=== PATIENT | female | born 1970 | race Caucasian/White ===

== ENCOUNTER → 2025-03-19 10:51 | Outpatient (REF) | payer OTHER, SELFPAY | LOC: WDC 10:51 | PROVIDERS: ATTENDING PHYSICIAN Family Medicine | DX: Z12.31 Encounter for screening mammogram for malignant neoplasm of breast (principal) | CPT/HCPCS: 77063; 77067 ==

== ENCOUNTER → 2025-04-04 08:54 | Outpatient (REF) | payer OTHER, SELFPAY | LOC: WDC 08:54 | PROVIDERS: ATTENDING PHYSICIAN Family Medicine | DX: R92.8 Other abnormal and inconclusive findings on diagnostic imaging of breast (principal) | CPT/HCPCS: 76642; 77061; 77065 ==

== ENCOUNTER → 2025-04-07 07:28 | Outpatient (REF) | payer OTHER, SELFPAY ==
--- NOTE | 2025-04-08 11:10 | OID.BR.INTR ---
OID Breast Navigator - Initial
- -
Did not meet patient at time of biopsy. Will follow up per protocol.
== END ==
LOC: WDC 07:28
PROVIDERS: ATTENDING PHYSICIAN Family Medicine
DX: N63.21 Unspecified lump in the left breast, upper outer quadrant (principal)
CPT/HCPCS: 88305; 19083; 19084; 88341; 88342; 88360; A4648

== ENCOUNTER → 2025-04-17 09:34 | Outpatient (REF) | payer OTHER, SELFPAY | LOC: RAD 09:34 | PROVIDERS: ATTENDING PHYSICIAN Surgery; FAMILY PHYSICIAN Family Medicine | DX: C50.412 Malignant neoplasm of upper-outer quadrant of left female breast (principal) | CPT/HCPCS: 71260; 74177; 78306; A9503; Q9967 ==

== ENCOUNTER → 2025-04-25 08:08 | Outpatient (REF) | payer OTHER, SELFPAY | LOC: MRI 3T 08:08 | PROVIDERS: ATTENDING PHYSICIAN Surgery; FAMILY PHYSICIAN Family Medicine | DX: C50.412 Malignant neoplasm of upper-outer quadrant of left female breast (principal) | CPT/HCPCS: 77049; A9585 ==

== ENCOUNTER → 2025-05-01 10:46 | Outpatient (REF) | payer OTHER, SELFPAY ==
[2025-05-01 11:04] VITALS: BP 97/65; BP_SYST 53
[2025-05-01] MEDS: ANCEF 10 IV (11:56)
[2025-05-01 12:55] VITALS: BP 108/63; BP_SYST 42
[2025-05-01 13:15] VITALS: BP 119/80; BP_SYST 54
== END ==
LOC: RADI 10:46
PROVIDERS: ATTENDING PHYSICIAN Internal Medicine Hematology & Oncology; FAMILY PHYSICIAN Family Medicine
DX: C50.412 Malignant neoplasm of upper-outer quadrant of left female breast (principal)
CPT/HCPCS: 36561; 76937; 77001; 99152; 99153; C1788

== ENCOUNTER → 2025-05-02 14:05 | Outpatient (REF) | payer OTHER, SELFPAY | LOC: HWRCS 14:05 | PROVIDERS: ATTENDING PHYSICIAN Internal Medicine Hematology & Oncology; FAMILY PHYSICIAN Family Medicine | DX: C50.412 Malignant neoplasm of upper-outer quadrant of left female breast (principal) | CPT/HCPCS: 93306 ==

== ENCOUNTER 2025-05-19 02:48 | Observation (INO) | payer OTHER, SELFPAY ==
[2025-05-18 23:15] VITALS: BP 105/64
[2025-05-19] VITALS (8 sets, daily range): BP systolic 96–135; BP diastolic 46–82; BMI 24.1
[2025-05-19] MEDS: TYLENOL 1000 MG PO (00:25)
[2025-05-19] MEDS: NSS 1000 IV (00:25)
--- NOTE | 2025-05-19 00:33 | ED.GENMED ---
History of Present Illness
General
Chief Complaint: Dehydration Symptoms
Time Seen by Provider: 05/18/25 23:27
History of Present Illness
History of Present Illness:
54-year-old female with history of breast cancer presenting to the emergency department for generally feeling unwell. Patient had her first chemotherapy session on Monday, 6 days ago. 3 days ago, started to feel rundown, nauseous, headache, sore
throat. Denies known fever. She follows at [facility]. She does note some mild lower abdominal discomfort, however suspects that it secondary to not eating very much. Denies chest pain or difficulty breathing. Denies cough. Denies urinary
complaints. Denies additional acute medical complaints
Past History
Past History
ED Past Medical History: None
ED Past Surgical History: None
Social History
Personal:
Living: with family
Employment: Employed
Phy Exam
Physical Exam
Physical Exam:
General: Well-appearing, no clinical signs of dehydration, nontoxic and in no acute distress
HEENT: protecting airway
Neck: appears supple
CV: Normal heart rate, regular rhythm
Resp: No accessory muscle use, no increased work of breathing, lungs clear to auscultation bilaterally
Abd: Soft and non-distended, mild tenderness to the lower abdomen without rebound or guarding
Extremities: No deformities, no swelling, no erythema
Neuro: alert, no focal neurologic deficit
: deferred
Rectal: deferred
Psych: Normal affect
Skin: Intact
Course
Orders/Labs/Results
Orders:
Orders
05/18/25 23:25
Electrocardiogram (*1) Urgent
Reason for Study: Other
Other Reason for Exam: Possible Sepsis
Cardiac Monitoring- Treatment ONCE
Complete Blood Count/With Diff Urgent
Comprehensive Metabolic Panel Urgent
O2 Therapy [RESP] Urgent
Titrate/Wean O2 to maintain O2 sat greater than (%): 93
Special Instructions: TO MAINTAIN CONTINUOUS O2 SATS > OR = 93%
Pulse Ox/cont/shift [RESP] Urgent
Quantity: 1
Special Instructions: CONTINUOUS
05/18/25 23:26
EKG- Treatment ONCE
05/18/25 23:30
Lactic Acid Q4H
Comment: ON ICE, CANCEL 2ND ORDER IF FIRST LACTIC ACID LEVEL <2
Blood Culture Q20M
JONATHON Source: Blood/Venous
Specimen Description:
Comment: Urgent from separate sites. If patient screens positive for possible sepsis
05/18/25 23:50
Blood Culture Q20M
JONATHON Source: Blood/Venous
Specimen Description:
Comment: Urgent from separate sites. If patient screens positive for possible sepsis
05/18/25 23:51
COVID-19 Antigen Urgent
Source: Nasal Swab
05/18/25 23:52
Influenza A+B Rapid Molecular Urgent
JONATHON Source: Nasal Swab
Specimen Description:
05/18/25 23:53
0.9% Sodium Chloride 1000 ml [Nss] 1,000 ml IV BOLUS
Acetaminophen [Tylenol] 1,000 mg PO NOW STA
05/19/25 00:00
CR Chest - 2 Views Urgent
Reason For Exam: fever, congestion
05/19/25 00:04
Manual Differential Urgent
05/19/25 00:15
Heparin Pf [Heparin Lock Flush] 500 unit IV PER PROTOCOL
05/19/25 00:22
CT Abd/pelvis W Iv Cont Urgent
Comment:
Reason For Exam: fever, lower pain, hx breast CA, fever
05/19/25 00:41
Urinalysis Urgent
Date Specimen was Collected: 05/19/25
Time Specimen was Collected: 00:41
Urine Microscopic Urgent
Date Specimen was Collected: 05/19/25
Time Specimen was Collected: 00:41
05/19/25 01:52
Piperacillin/Tazo 4.5 Gram [Zosyn] 4.5 gram in 100 ml IV NOW
Abnormal Lab Results
05/19/25 05/19/25
00:04 00:41
WBC 2.8 L 10^3/uL
(4.8-10.8)
RBC 3.69 L 10^6/uL
(4.20-5.40)
Hgb 11.5 L g/dL
(12.0-16.0)
Hct 33.5 L %
(37.0-47.0)
MCH 31.2 H pg
(27.0-31.0)
RDW 11.4 L %
(11.5-14.5)
Plt Count 110 L 10^3/uL
(130-400)
MPV 12.0 H fL
(7.4-10.4)
Abs Neuts (Manual) 0.3 L* 10^3/uL
(1.4-6.5)
Segmented Neutrophils 6 L %
(42-75)
Band Neutrophils 6 H %
(0-3)
Lymphocytes (Manual) 55 H %
(20-51)
Monocytes (Manual) 29 H %
(2-9)
Glucose 145 H mg/dl
(70-99)
Urine Occult Blood 1+ A
(Negative)
Ur Leukocyte Esterase 1+ A
(Negative)
Urine WBC 11-15 A /HPF
(0-5)
Urine Bacteria Many A
(Negative)
05/19/25 00:04
05/19/25 00:04
Vital Signs
Initial and Last Documented VS:
Initial Vital Signs
Temp Pulse Resp BP Pulse Ox
100.4 F H 90 24 105/64 97
05/18/25 23:15 05/18/25 23:15 05/18/25 23:15 05/18/25 23:15 05/18/25 23:15
Last Documented Vital Signs
Temp Pulse Resp BP Pulse Ox
100.4 F H 89 20 135/82 98
05/18/25 23:15 05/19/25 00:46 05/19/25 00:46 05/19/25 00:46 05/19/25 00:46
MDM/Problems Addressed
MDM/Problems Addressed:
54-year-old female with history of breast cancer presenting for generally feeling well signs on arrival significant for low-grade temperature.
On exam patient is resting comfortably, no acute distress, nontoxic. Again vital signs concerning for low-grade temperature. Patient is on active chemotherapy, immunocompromise state. For this reason we will obtain laboratory analysis including
blood cultures, lactic acid. Unclear source of infection. Notes some general throat discomfort and headache, likely viral URI. Again, given high risk patient, will obtain a chest x-ray imaging, urinalysis. Patient also noted to have some mild
lower abdominal discomfort. This reason we will also obtain CT abdomen pelvis. Patient started on IV fluids given Tylenol for fever.
01:50 -labs show neutropenia with concern at this time for neutropenic fever. Urine without sign of infection. CT without acute process. Chest x-ray without acute cardiopulmonary disease. However, given immunocompromise state with neutropenic
fever, will broad-spectrum antibiotics and plan for admission
*Pulse Oximetry
SaO2: 97
Oxygen Mode of Delivery: Room air
*Critical Care Note
Total Time (30-74mins, 75-104mins- exclusive of procedures): Not Applicable
ED Attending Note
-
Portions of this chart may have been created with voice recognition software.� Occasional wrong word or��sound alike� substitutions may have occurred due to the inherent limitations of voice recognition software.
Discharge Plan
Departure
Prescriptions:
No Action
phenazopyridine 200 MG tablet
200 mg PO TID Qty: 7 0RF
sulfamethoxazole-trimethoprim 1 TABLET tablet
1 tab PO BID Qty: 14 0RF
Referrals:
UNKNOWN - PT DOES,NOT KNOW [Family Provider]
Interventions
Interventions:
*Risk Screen - Suicide Last Done: 05/18/25 23:15
*General Assessment Last Done: 05/19/25 00:29
*Neglect/Abuse Screening Last Done: 05/18/25 23:15
*ED- Fall Risk Assessment Last Done: 05/19/25 00:29
PZ-Obuoci-Gvxsnymscz Assessment Last Done: 05/19/25 00:28
ED- Cardiac Assessment Last Done: 05/19/25 00:28
ED- Neurological Assessment Last Done: 05/19/25 00:28
ED- Pulmonary Assessment Last Done: 05/19/25 00:28
ED-Skin Assessment Last Done: 05/19/25 00:28
Discharge Date and Time
Print Language: CROATIAN
[2025-05-19 00:35] LABS: Lactic Acid 1.8 mmol/L (0.7-2.0)
[2025-05-19 00:36] LABS: ALT (SGPT) 21 U/L (0-35); AST (SGOT) 23 U/L (14-36); Alkaline Phosphatase 81 U/L (38-126); Blood Urea Nitrogen 11 mg/dl (7-17); Calcium 8.9 mg/dl (8.4-10.2); Carbon Dioxide 25 mmol/L (22-30); Chloride 106 mmol/L (98-107); Glucose 145 mg/dl (70-99); Potassium 3.9 mmol/L (3.5-5.1); Sodium 136 mmol/L (135-145); Total Bilirubin 0.6 mg/dl (0.2-1.3); Total Protein 6.4 g/dl (6.3-8.2); eGFR > 60.00
[2025-05-19 00:40] LABS: COVID-19 Antigen Negative (Negative)
[2025-05-19 00:50] LABS: Urine Albumin Negative (Neg - Trace); Urine Bilirubin Negative (Negative); Urine Character Clear (Clear); Urine Color Yellow; Urine Glucose Negative (Negative); Urine Ketone Negative (Negative); Urine Leukocyte 1+ (Negative); Urine Nitrite Negative (Negative); Urine Occult Blood 1+ (Negative); Urine Specific Gravity 1.005 (<1.030); Urine Urobilinogen Negative (Neg - 1+)
[2025-05-19 00:52] LABS: Hematocrit 33.5 % (37.0-47.0); Hemoglobin 11.5 g/dL (12.0-16.0); Mean Corp Hgb Conc. 34.3 g/dL (33.0-37.0); Mean Corpuscular Hgb 31.2 pg (27.0-31.0); Mean Corpuscular Volume 90.8 fL (81.0-99.0); Platelet Count 110 10^3/uL (130-400); Red Blood Cell Count 3.69 10^6/uL (4.20-5.40); Red Cell Dist. Width 11.4 % (11.5-14.5); White Blood Cell Count 2.8 10^3/uL (4.8-10.8)
[2025-05-19 01:10] LABS: Urine Bacteria Many (Negative)
[2025-05-19 01:11] LABS: Urine Red Blood Cell 0-2 /HPF (0-2)
[2025-05-19 01:41] LABS: Band Neutrophils 6 % (0-3); Eosinophils 4 % (0-6); Lymphocytes 55 % (20-51); Monocytes 29 % (2-9); Segmented Neutrophils 6 % (42-75)
[2025-05-19 01:42] LABS: Absolute Neutrophils -Man Diff 0.3 10^3/uL (1.4-6.5); Normal RBC Morphology Yes; Platelets Checked Yes; Total Cells Counted 100
--- NOTE | 2025-05-19 02:07 | HPS.HSE ---
Family Physician
-
Family Physician: NOT KNOW UNKNOWN - PT DOES
Chief Complaint
-
fever
History of Present Illness
This is a 54-year-old female with past medical history of breast cancer was recently started on chemotherapy 6 days ago presenting to the emergency department with weakness/malaise.
Patient was diagnosed with breast cancer in March. She began neoadjuvant chemotherapy with TCHP on Monday. She reports being essentially asymptomatic prior to the chemo. By Monday she started having symptoms including 2-3 bouts of loose
stool/diarrhea, abdominal pain, loss of appetite, fatigue. She reports urine started to become darker colored and had an odor. Overall she denied vomiting but she has nausea. The abdominal pain is diffuse. She also reports perianal discomfort
secondary to the diarrhea. She denies any cough, she did not measure a temperature at home and she denied having chills. Denies feeling short of breath.
In the emergency Department she had a temp of 100.4, blood pressure 135/80 with a pulse of 84 she was satting 98% on room air. Chest x-ray was clear. She has a white count of 2.8 with a ANC less than 300, hemoglobin 9.5 platelet 110. Electrolytes
were normal. BUN/creatinine were normal. Glucose was normal. LFTs within normal limits.
CT of the abdomen pelvis shows no acute findings. UA is equivocal with positive leukocyte esterase WBCs and bacteria. Negative nitrites.
Medical History
Past Medical History
Past Medical History: Reports Cancer (Breast cancer)
Past Surgical History: Reports Other
Social History
Tobacco: Non-smoker
Alcohol: None
Drug: None
Personal:
Living: With Family
Family History
Family History: Not pertinent
Allergies / Home Medications
Allergies reflects when Allergies were last updated in [employer].
Home Medications with original date entered in [employer]
Allergy/Medication List:
Allergies
Allergy/AdvReac Type Severity Reaction Status Date / Time
erythromycin base Allergy Hives Verified 05/18/25 23:19
(Erythromycin Base)
Home Medications
phenazopyridine 200 mg tablet 200 mg PO TID #7 tabs 11/03/13
sulfamethoxazole 800 mg-trimethoprim 160 mg tablet 1 tab PO BID #14 tabs 11/03/13
Review of Systems
-
Constitutional: Reports Fatigue
EENT: Reports No Symptoms
Respiratory: Reports No Symptoms
Cardiac: Reports No Symptoms
Abdomen/GI: Reports No Symptoms
: Reports No Symptoms
Musculoskeletal: Reports No Symptoms
Skin: Reports No Symptoms
Neurological: Reports No Symptoms
Endocrine: Reports No Symptoms
Hematologic/Lymphatic: Reports No Symptoms
Psych: Reports No Symptoms
Physical Exam
Vital Signs
Vital Signs
Temp Pulse Resp BP Pulse Ox
100.4 F H 89 20 135/82 98
05/18/25 23:15 05/19/25 00:46 05/19/25 00:46 05/19/25 00:46 05/19/25 00:46
Physical Exam
General: Well Developed, Well Nourished and No Apparent Distress
HEENT: NormoCephalic, Moist mucous membranes and Atraumatic
Respiratory: Clear
Cardiac: S1/S2 and Regular Rhythm; No Murmur or Rub
GI: Soft, Non Tender, Non Distended and Normal Bowel Sounds; No Organomegaly
Rectal: Deferred by Provider
Musculoskeletal: No Clubbing, No Cyanosis and No Edema
Skin: No Rash
Neuro: Nonfocal/grossly intact
Laboratory Results
-
05/19/25 00:04
05/19/25 00:04
Laboratory Results
Lactic Acid Cancelled 05/19/25 03:30
Total Bilirubin 0.6 mg/dl (0.2-1.3) 05/19/25 00:04
AST 23 U/L (14-36) 05/19/25 00:04
ALT 21 U/L (0-35) 05/19/25 00:04
Alkaline Phosphatase 81 U/L (38-126) 05/19/25 00:04
Data Reviewed
-
Diagnostic Radiology: Image Personally Visualized and interpreted and Report Reviewed by me
CT Scan: Report Reviewed by me
Lab Data: Labs Reviewed by me
Old Records: Reviewed
Impression/Plan
-
IMPRESSION:
54-year-old female with recent diagnosis of breast cancer with recently status post 4 cycle of TCHP and presents to the emergency department after approximately 5 days of nausea, diarrhea, abdominal pain, malaise, loss of appetite and dehydration.
Found to be febrile to 100.4. Infectious workup is negative in the ED. Flu COVID-negative, x-ray negative, UA is equivocal. She had a CT of the abdomen pelvis which shows no acute intra-abdominal process.
PLAN:
Febrile neutropenia -patient with moderate risk given low duration of neutropenia, no significant comorbid conditions, hemodynamically stable and in no acute distress. Source possible urinal but unclear at this time.
-Admit to MedSurg observation
-Blood cultures have been sent
-Urine cultures sent
-Will start cefepime for appropriate coverage
-Monitor ANC
-Infectious disease consultation
Diarrhea -suspect secondary to chemo
-Stool cultures, norovirus and C. difficile
-Pain control
-Antiemetics
-Can start with Imodium
-IV fluids
DVT prophylaxis�Lovenox subcu
CODE STATUS�full code
[2025-05-19] MEDS: ZOSYN 100 IV (02:34)
[2025-05-19] MEDS: LR 1000 IV ×3 (04:43→21:25)
[2025-05-19] MEDS: ZOFRAN 4 MG IV (05:02)
[2025-05-19] MEDS: CALDOLOR 104 MG IV (05:03)
--- NOTE | 2025-05-19 05:50 | PTCARENOTE ---
Pt received from ED via stretcher. Ambulated to room independently w/o incident. AAOx3, at bedside. Admission and assessment completed. Oriented to surroundings and plan of care discussed. L breast biopsy site w/healed puncture and
ecchymosis, HIRAL. Excoriation to perineum from loose stools, pericare wipes and calazyme provided. Stool studies sent. Reports occasional burning w/urination. Pt tearful at times when reviewing plan of care/educating. Emotional support provided.
Reports abdominal pain and nausea. 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 One time dose received for IV ibuprofen (refer to MAR). R SubQ port w/brisk blood return, LR at 125 mL/hr. Neutropenic/enhance precautions maintained. Call
lisa w/in reach.
[2025-05-19 06:34] LABS: Hematocrit 31.6 % (37.0-47.0); Hemoglobin 10.9 g/dL (12.0-16.0); Mean Corp Hgb Conc. 34.5 g/dL (33.0-37.0); Mean Corpuscular Hgb 31.5 pg (27.0-31.0); Mean Corpuscular Volume 91.3 fL (81.0-99.0); Mean Platelet Volume 11.6 fL (7.4-10.4); Platelet Count 108 10^3/uL (130-400); Red Blood Cell Count 3.46 10^6/uL (4.20-5.40); Red Cell Dist. Width 11.5 % (11.5-14.5); White Blood Cell Count 3.8 10^3/uL (4.8-10.8)
[2025-05-19 06:54] LABS: Blood Urea Nitrogen 8 mg/dl (7-17); Calcium 8.6 mg/dl (8.4-10.2); Carbon Dioxide 21 mmol/L (22-30); Chloride 109 mmol/L (98-107); Estimated Creatinine Clearance 109 ml/min; Glucose 108 mg/dl (70-99); Magnesium 1.8 mg/dl (1.6-2.3); Potassium 3.7 mmol/L (3.5-5.1); Sodium 138 mmol/L (135-145); eGFR > 60.00
[2025-05-19] MEDS: STERILE WATER FOR INJECTION 10 ML IV ×3 (08:31→23:16)
[2025-05-19] MEDS: MAXIPIME 2000 MG IV ×3 (08:31→23:16)
--- NOTE | 2025-05-19 15:39 | CM ---
Addendum entered by Debra Murry 05/19/25 15:45:
OBS status
form explained & signed. In chart
Original Note:
Patient seen at bedside
IA completed
DX: Febrile neutropenia
PMH: breast cancer was recently started on chemotherapy 6 days ago presenting to the emergency department with weakness/malaise
Lives in a 2 story home with and their 4 children
PLOF: Independent, drives
Denies DME
Denies VN/Rehab
Denies Insecurities
PCP: [facility] Castro
[facility]
PLAN: home, no needs anticipated
--- NOTE | 2025-05-19 17:35 | CON.ID ---
Consultation
-
Date/Time Consultation Requested: April
Date/Time Consultation Performed: April
Requesting Provider: Dr Tang Davey
Performing Provider: Sola Parish MD
Reason for Consultation: Neutropenic fever
Chief Complaint / Past History
Chief Complaint
The patient was admitted by way of the emergency room due to recent malaise, nausea, headache and sore throat in the setting of recent chemotherapy for node positive left breast cancer
History of Present Illness
Recently diagnosed breast cancer node positive with neoadjuvant chemotherapy provided approximately 6 days ago. Prior to admission and breast cancer diagnosis patient was healthy and on no home medications. The patient was found to have left
breast mass and is currently being managed by oncology for her treatment. Her admitting temperature was 100.4 with WBC 2.8 with ANC less than 300. CT of the abdomen and urine analysis were benign patient was started on empiric
piperacillin/tazobactam. Patient had been on trimethoprim/sulfamethoxazole prior to admission with UA upon admission revealing leukocyte Estrace positive, WBCs, negative nitrites
Past History
Past Medical History: Cancer
Past Surgical History: None
Allergy History:
erythromycin base (Erythromycin Base) Allergy (Verified 05/18/25 23:19)
Hives
Medications Reviewed: Yes
Social History
Tobacco: Non-Smoker
Alcohol: None
Drug: None
Personal:
Living: With Family
Employment: Employed
Family History
Family History: Cancer (Maternal aunt with breast cancer), Diabetes (Mother) and Other (CVA Father)
Review of Systems
Review of Systems
General: Fever and Change in Appetite (Low-grade fever in the emergency room, patient with decreased appetite with nausea without vomiting)
Gasteroenterology: Nausea and Other (Loss of appetite)
Endocrine: Weakness, Fatigue and Other (General malaise)
All systems: All other systems were reviewed and were negative
Vital Signs
Temp Pulse Resp BP Pulse Ox
97.9 F 72 16 98/54 97
05/19/25 15:10 05/19/25 15:10 05/19/25 15:10 05/19/25 15:10 05/19/25 15:10
Physical Exam
Physical Exam
Constitutional: No Acute Distress, Well Developed, Comfortable and Other (Anxious)
Head: Normocephalic
Eyes: Pupils Equal, Pupils Round, No Conjunctival Hemorrhage and Sclera Anicteric
Pharynx: Benign
Oral: No Thrush, No Ulcers and Other (Complaints of sore throat without dysphagia and without evidence of erythema, ulceration, plaque)
Lymph Nodes: Other (Recent left axillary discomfort with findings on imaging of malignant nodes)
Cardiovascular: Regular Rate
Pulmonary: Clear and Non Labored
Gastrointestinal: Soft, Tender, Decreased Bowel Sounds, No Rebound and No Guarding
Genito-Urinary: Other (No flank tenderness, no suprapubic discomfort)
Extremities: Pulses and Other (No edema, no cyanosis, no clubbing good ROM)
Skin: Warm, Dry and Other (Clear)
Wound: None
Neurological: Awake, Alert, Oriented, AO x 3 and No Motor Deficits
Psychological: Calm and Other (A bit anxious)
Lab / Diagnostic Study Results
05/19/25 06:11
05/19/25 06:10
Total Counted 100 05/19/25 00:04
Abs Neuts (Manual) 0.3 10^3/uL (1.4-6.5) L* 05/19/25 00:04
Segmented Neutrophils 6 % (42-75) L 05/19/25 00:04
Band Neutrophils 6 % (0-3) H 05/19/25 00:04
Lymphocytes (Manual) 55 % (20-51) H 05/19/25 00:04
Eosinophils (Manual) 4 % (0-6) 05/19/25 00:04
Lactic Acid Cancelled 05/19/25 03:30
Urine WBC 11-15 /HPF (0-5) A 05/19/25 00:41
Ur Squamous Epith Cells 3-5 /LPF (Few) 05/19/25 00:41
Microbiology Results
Micro:
05/19/25 05:16 Salmonella/Shigella Culture - Pending
Feces/Stool Campylobacter Culture - Pending
Shiga Toxin Test - Pending
Stool Leukocytes - Final
05/19/25 05:16 C. difficile GDH Antigen & Toxins - Final
Feces/Stool Negative for toxigenic C.difficile
05/19/25 00:05 Blood Culture - Pending
Blood/Venous
05/19/25 00:04 Blood Culture - Pending
Blood/Venous
05/19/25 00:04 Influenza Types A & B ([facility]) - Final
Nasal Swab Negative for Influenza A & B, NAAT
Negative results must be combined with clinical observations
and patient history.
Nucleic Acid Amplification test (NAAT)performed on the
[employer] NOW platform.
Assessment / Plan
. 1. Oncology patient status post chemotherapy with expected neutropenia and low-grade fever with concern for infectious etiology
2. Equivocal urine analysis nitrite negative but with WBC and leukocyte esterase positive without symptoms and with trimethoprim/sulfamethoxazole antibiotic provided prior to admission
3. 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
Stool samples sent and pending
4. Empiric antibiotic initiated in the ED with piperacillin/tazobactam changed today to cefepime with culture results pending
5. Patient with likely continued decrease in WBC/platelets with patient currently afebrile will monitor on current antibiotic pending culture results
CT abdomen and pelvis was reviewed by me with no acute findings in GI or to suggest presence of acute infection at this time
Patient will likely have continued decrease thank you for calling infectious disease consultation. The ID team will continue to follow with you
Care Review
Plan reviewed with: Other (The patient was discussed in detail with at bedside)
Total Time Spent with Patient (in minutes): 55
[2025-05-20] MEDS: LR IV (04:39)
[2025-05-20 07:00] VITALS: BP 108/64
[2025-05-20] MEDS: MAXIPIME 2000 MG IV (08:05)
[2025-05-20] MEDS: STERILE WATER FOR INJECTION 10 ML IV (08:06)
[2025-05-20 11:15] LABS: Hematocrit 34.6 % (37.0-47.0); Hemoglobin 11.7 g/dL (12.0-16.0); Mean Corp Hgb Conc. 33.8 g/dL (33.0-37.0); Mean Corpuscular Hgb 30.9 pg (27.0-31.0); Mean Corpuscular Volume 91.3 fL (81.0-99.0); Mean Platelet Volume 11.2 fL (7.4-10.4); Platelet Count 143 10^3/uL (130-400); Red Blood Cell Count 3.79 10^6/uL (4.20-5.40); Red Cell Dist. Width 11.6 % (11.5-14.5); White Blood Cell Count 18.4 10^3/uL (4.8-10.8)
--- NOTE | 2025-05-20 11:25 | W.PN.HOSP.TC ---
Addendum entered and electronically signed by Tang Davey MD 05/20/25 13:57:
Patient tells me that she was not using any antibiotics including Bactrim or Pyridium. She was only using nausea medicine before coming in.
She continues to remain fine and tolerating diet without nausea or vomiting. No diarrhea. No fever or chills.
Repeat CBC with differential shows resolution of neutropenia.
So far investigations did not relieve any foci of infection.
Will hold further antibiotics discharge patient home. Patient advised to follow-up with her oncologist as planned. Advised to watch out for any recurrence of fever and if so to report to her oncologist.
Original Note:
Today's Communication/Plan
-
Following ANC count today
DC planning
Assessment / Plan
Assessment / Plan
IMPRESSION:
54-year-old female with recent diagnosis of breast cancer with recently status post 4 cycle of TCHP and presents to the emergency department after approximately 5 days of nausea, diarrhea, abdominal pain, malaise, loss of appetite and dehydration.
Found to be febrile to 100.4. Infectious workup is negative in the ED. Flu COVID-negative, x-ray negative, UA is equivocal. She had a CT of the abdomen pelvis which shows no acute intra-abdominal process.
PLAN:
Febrile neutropenia
Presented with GI symptoms which have resolved. Unclear if chemo regimen related or primary GI process but with resolution suspect former. C. difficile has been negative. Routine bacterial cultures are pending. No stool leukocytes.
Blood cultures been negative so far.
Today afebrile and clinically improved
Currently on cefepime. Await differential count from today.
Appreciate ID input.
Patient does remember getting Neulasta.
If not neutropenic anymore and okay from ID standpoint will discharge patient home.
Diarrhea -suspect secondary to chemo
- Improved
DVT prophylaxis�Lovenox subcu
CODE STATUS�full code
Anticipated Discharge: Today
Subjective/Interval History
-
Date of Service: May 20, 2025
Feeling much better. Weakness has resolved. Not fatigued anymore. No nausea vomiting and tolerating diet. Had small bowel movement without diarrhea. Denies any dysuria or frequency of urine.
No fever chills.
Denies shortness of breath or chest pain no cough.
Keen to go home.
No acute joint pains or swellings.
Objective Data
-
Labs:
Laboratory Results
05/19/25 05/20/25
06:11 11:01
WBC 3.8 L 18.4 H
Hgb 10.9 L 11.7 L
Hct 31.6 L 34.6 L
Plt Count 108 L 143 D
Vital Signs:
Vital Signs
Temp Pulse Resp BP Pulse Ox
97.9 F 71 16 108/64 98
05/20/25 07:00 05/20/25 07:00 05/20/25 07:00 05/20/25 07:00 05/20/25 07:00
I&O
05/19/25 05/20/25 05/21/25
06:59 06:59 06:59
Intake Total 779 / 779 2222.5 / 2222.5
Balance 779 / 779 2222.5 / 2222.5
Physical Exam
-
General: Comfortable
Respiratory: Clear to Auscultation and Non Labored Respirations; Negative Accessory Resp Muscle Use
Cardiac: Regular Rhythm and S1/S2
GI: Soft and Nontender
Neuro: AO x 3
Data Reviewed
-
Labs: Labs Reviewed by me
[2025-05-20 11:59] LABS: Absolute Neutrophils -Man Diff 13.8 10^3/uL (1.4-6.5); Band Neutrophils 9 % (0-3); Lymphocytes 16 % (20-51); Monocytes 9 % (2-9); Segmented Neutrophils 66 % (42-75)
[2025-05-20 12:00] LABS: Normal RBC Morphology Yes; Platelets Checked Yes; Total Cells Counted 100
[2025-05-20 14:30] VITALS: BP 120/75
--- NOTE | 2025-05-20 14:40 | CM ---
Patient chart reviewed
discharge today
IMM n/a
PLAN: Home, no needs
to transport
--- NOTE | 2025-05-20 18:23 | W.PN.ID1 ---
Date of Service
Date of Service: May 20, 2025
Today's Communication
Patient for discharge to home with oncology follow-up outpatient
Assessment / Plan
. 1. Oncology patient status post chemotherapy with expected neutropenia and low-grade fever with concern for infectious etiology with resolution
2. Equivocal urine analysis nitrite negative but with WBC and leukocyte esterase positive without symptoms and with trimethoprim/sulfamethoxazole antibiotic provided prior to admission
3. 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
Stool samples sent and negative
4. Empiric antibiotic initiated in the ED with piperacillin/tazobactam changed today to cefepime with culture results pending and now discontinued
5. Patient with likely continued increase in WBC/platelets with patient currently afebrile
CT abdomen and pelvis was reviewed by me with no acute findings in GI or to suggest presence of acute infection at this time
6. Discharge to home today in improved condition by PMD with medical oncology follow up as outpatient
Chief Complaint
-: Fever (Patient was admitted after chemotherapy with neutropenic fever, malaise, and general inanition)
Subjective / Review of Systems
Review of Systems: No Fever, No Chills, No Headache, No Pharyngitis, No Stiff Neck, No Swollen Lymph Nodes, No Cough, No Sputum Production, No Chest Pain, No Palpitations, No Abdominal Pain, No Nausea, No Vomiting, No Diarrhea, No Dysuria, No Joint
Pain and No Skin Rash (Patient's symptoms have greatly improved since admission with resolution of fever, weakness, and decreased energy. The patient states that she still has some irritation in her mouth but is having no difficulty in swallowing,
she is able to eat and drink without event or without discomfort.)
Vital Signs / Physical Exam
Vital Signs
Vital Signs
Temp Pulse Resp BP Pulse Ox
97.8 F 82 16 120/75 99
05/20/25 14:30 05/20/25 14:30 05/20/25 14:30 05/20/25 14:30 05/20/25 14:30
Physical Exam
Constitutional: No Acute Distress, Well Developed and Comfortable
Head: Normocephalic
Eyes: Pupils Equal, Pupils Round, No Conjunctival Hemorrhage and Sclera Anicteric
Oropharyngeal: Erythema (Patient with some erythema but without thrush or ulceration and is able to eat and drink without difficulty)
Cardiovascular: Regular Rate
Pulmonary: Clear
Gastrointestinal: Soft, Non Tender, Non Distended, Normal Bowel Sounds, No Rebound and No Guarding (.The patient has had resolution of crampy abdominal discomfort as well as watery diarrhea. She is eating without event and is slowly improving since
admission with increased energy and activity.)
Skin: Warm and Dry
Wound: None
Neurological: Awake, Alert, Oriented, AO x 3, Normal Gait, Normal Muscle Strength and No Motor Deficits
Psychological: Calm
Lines: Port (right chest)
Objective Data
Lab Data
Lab Results
05/20/25 11:01
05/19/25 06:10
Estimated Creat Clear 109 ml/min 05/19/25 06:10
Lactic Acid Cancelled 05/19/25 03:30
Total Bilirubin 0.6 mg/dl (0.2-1.3) 05/19/25 00:04
AST 23 U/L (14-36) 05/19/25 00:04
ALT 21 U/L (0-35) 05/19/25 00:04
Alkaline Phosphatase 81 U/L (38-126) 05/19/25 00:04
Most recent labs reviewed.
Microbiology: Report Reviewed
Micro Results:
05/19/25 05:16 Salmonella/Shigella Culture - Preliminary
Feces/Stool Culture in Progress
Campylobacter Culture - Preliminary
Culture in Progress
Shiga Toxin Test - Pending
Stool Leukocytes - Final
05/19/25 00:05 Blood Culture - Preliminary
Blood/Venous No Growth in 24 hours- Final report to follow
05/19/25 00:04 Blood Culture - Preliminary
Blood/Venous No Growth in 24 hours- Final report to follow
05/19/25 05:16 C. difficile [facility] Antigen & Toxins - Final
Feces/Stool Negative for toxigenic C.difficile
05/19/25 00:04 Influenza Types A & B ([facility]) - Final
Nasal Swab Negative for Influenza A & B, NAAT
Negative results must be combined with clinical observations
and patient history.
Nucleic Acid Amplification test (NAAT)performed on the
[employer] platform.
Chest X-Ray: Report Reviewed
CT Scan: Report Reviewed
Care Review
Plan reviewed with: Nurse and Other Provider
Total Time Spent with Patient (in minutes): 35
--- NOTE | 2025-05-21 15:18 | W.DCSUMMARY ---
Discharge Summary
Discharge Data
Date of Admission: 05/19/25
Date of Discharge: 05/20/25
-
Pending Results: No
Hospital Course
Primary diagnosis:
Febrile neutropenia
Diarrhea suspected secondary to chemo
Secondary diagnosis:
Breast cancer on TCHP chemo regimen
Hospital course:
54-year-old female presented the with 5 days of nausea, diarrhea, abdominal pain, malaise and loss of appetite and dehydration. She found to have fever of 100.4. She is received first cycle of TCHP cancer treatment. She was found to be
neutropenic with absolute neutrophil count of 300. With neutropenia and low-grade fever and GI symptoms she was admitted for further evaluation. She had a CT of the abdomen pelvis which showed no evidence of acute intra-abdominal process. She was
flu and COVID-negative. Chest x-ray was negative. UA was nondiagnostic. CT was negative. Blood cultures were negative. She was initially initiated on cefepime but once there was no obvious source of infection and no further fevers her
antibiotics were discontinued. The only fever was 100.4 on admission. She was given Neulasta with the chemo and her white count did jump up significantly following day after admission from 2.8-18.4 and a neutrophils of 300-13 80. She also had
improvement in her GI symptoms. When she was tolerating diet she was discharged home.
Consultants on board:
Infectious disease-Sola Ceja
Discharge Plan
-
Patient Disposition: Home (Routine Discharge)
Discharge Diagnosis/Procedures: Neutropenic fever; on chemo/targeted therapy for breast cancer
Diet: Regular
Activity: As tolerated
Driving Restrictions: As prior to admission
Bathing Restrictions: None
Activity Restrictions/Additional Instructions:
Call your oncologist if you have any further recurrence of nausea vomiting or diarrhea or any fevers.
Referrals:
UNKNOWN - PT DOES,NOT KNOW [Family Provider]
Prescriptions:
Discontinued
phenazopyridine 200 MG tablet
200 mg PO TID Qty: 7 0RF
sulfamethoxazole-trimethoprim 1 TABLET tablet
1 tab PO BID Qty: 14 0RF
Discharge Orders:
Discharge Patient (As Directed); Ordered 05/20/25
Ordered By: Tang Davey
Discharge Date and Time
Discharge Date/Time: 05/20/25 14:54
Print Language: NAURUAN
== END 2025-05-20 14:54 | disposition home or self-care (01) ==
LOC: 3 WEST ACU 02:48
PROVIDERS: ADMITTING PHYSICIAN Internal Medicine; ATTENDING PHYSICIAN Internal Medicine; EMERGENCY PHYSICIAN Student in an Organized Health Care Education/Training Program; OTHER PHYSICIAN Hospitalist
DX: D70.9 Neutropenia, unspecified (principal); E86.0 Dehydration; Z85.3 Personal history of malignant neoplasm of breast; Z11.52 Encounter for screening for COVID-19; R50.81 Fever presenting with conditions classified elsewhere; R09.89 Other specified symptoms and signs involving the circulatory and respiratory systems; C50.919 Malignant neoplasm of unspecified site of unspecified female breast; R19.7 Diarrhea, unspecified; R10.9 Unspecified abdominal pain; R63.0 Anorexia; R11.0 Nausea; Z92.21 Personal history of antineoplastic chemotherapy
CPT/HCPCS: 71046; 74177; 80048; 80053; 81003; 81015; 83605; 83735; 85025; 85027; 87040; 87045; 87046; 87324; 87427; 87449; 87502; 87811; 89055; 93005; 96374; 96375; 99285; G0378; Q9967

== ENCOUNTER → 2025-07-23 16:27 | Outpatient (REF) | payer OTHER, SELFPAY | LOC: RCS 16:27 | PROVIDERS: ATTENDING PHYSICIAN Internal Medicine; FAMILY PHYSICIAN Family Medicine | DX: C50.412 Malignant neoplasm of upper-outer quadrant of left female breast (principal); C50.912 Malignant neoplasm of unspecified site of left female breast; Z17.31 Human epidermal growth factor receptor 2 positive status; Z17.1 Estrogen receptor negative status [ER-] | CPT/HCPCS: 93306 ==

== ENCOUNTER → 2025-10-27 15:04 | Outpatient (REF) | payer OTHER, SELFPAY | LOC: HWRCS 15:04 | PROVIDERS: ATTENDING PHYSICIAN Internal Medicine; FAMILY PHYSICIAN Family Medicine | DX: C50.412 Malignant neoplasm of upper-outer quadrant of left female breast (principal); Z17.1 Estrogen receptor negative status [ER-]; C50.912 Malignant neoplasm of unspecified site of left female breast; Z17.31 Human epidermal growth factor receptor 2 positive status; Z51.11 Encounter for antineoplastic chemotherapy | CPT/HCPCS: 93306 ==

== ENCOUNTER → 2025-10-29 13:45 | Outpatient (REF) | payer OTHER, SELFPAY ==
[2025-10-29 13:55] VITALS: BP 107/69; BP_SYST 78
[2025-10-29 15:05] VITALS: BP 98/66; BP_SYST 63
[2025-10-29 15:19] VITALS: BP 98/66
== END ==
LOC: RADI 13:45
PROVIDERS: ATTENDING PHYSICIAN Internal Medicine; FAMILY PHYSICIAN Family Medicine
DX: Z45.2 Encounter for adjustment and management of vascular access device (principal); C50.412 Malignant neoplasm of upper-outer quadrant of left female breast
CPT/HCPCS: 36590; 77001